=== PATIENT | female | born 2005 | race Caucasian/White ===

== ENCOUNTER 2024-11-28 10:13 | Emergency (ER) | payer OTHER ==
[2024-11-28] MEDS ORDERED: DexAMETHasone 0.5MG/5ML ORAL ELIX PO ONE (10:30)
[2024-11-28] MEDS ORDERED: KETOROLAC TROMETH 30 MG/ML 1ML VIAL IM ONE (10:30)
--- NOTE | 2024-11-28 11:10 | ED.PDOC ---
Eye-HPI HPI Comments 19y F who presents to the ED for chief complaint of sore throat. Pt states she had sore throat 2 weeks prior and went to urgent care and placed on antibiotics. Pt states despite finishing course of abx, she has noticed increased swelling and pain by her palatine tonsils for the past 2 days. Pt otherwise denies any other symptoms. 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 Family History Family History: Reviewed,noncontributory to illness, Unobtainable Social History Smoker: Non-Smoker Alcohol: Denies ETOH Use Drugs: Denies Drug Use Lives In: Home Constitutional: denies: chills, diaphoresis, fatigue, fever, malaise, sweats, weakness, others EENTM: reports: throat pain, throat swelling; denies: blurred vision, double vision, ear bleeding, ear discharge, ear drainage, ear pain, ear ringing, eye pain, eye redness, hearing loss, mouth pain, mouth swelling, nasal discharge, nose bleeding, nose congestion, nose pain, photophobia, tearing, voice changes, others Respiratory: denies: cough, hemoptysis, orthopnea, SOB at rest, shortness of breath, SOB with excertion, stridor, wheezing, others Cardiovascular: denies: chest pain, dizzy spells, diaphoresis, Dyspnea on exertion, edema, irregular heart beat, left arm pain, lightheadedness, palpitations, PND, syncope, others Gastrointestinal: denies: abdomen distended, abdominal pain, blood streaked bowels, constipated, diarrhea, dysphagia, difficulty swallowing, hematemesis, melena, nausea, poor appetite, poor fluid intake, rectal bleeding, rectal pain, vomiting, others Genitourinary: denies: abnormal vagina bleeding, burning, dyspareunia, dysuria, flank pain, frequency, hematuria, incontinence, pain, , vagina discharge, urgency, others Neurological: denies: dizziness, fainting, headache, left sided numbness, left sided weakness, numbness, paresthesia, pre-existing deficit, right sided numbness, right sided weakness, seizure, speech problems, tingling, tremors, weakness, others Musculoskeletal: denies: back pain, gout, joint pain, joint swelling, muscle pain, muscle stiffness, neck pain, others Integumetry: denies: bruises, change in color, change in hair/nails, dryness, laceration, lesions, lumps, rash, wounds, others Allergic/Immunocompromised: denies: Difficulty Healing, Frequent Infections, Hives, Itching, others Hematologic/Lymphatic: denies: anemia, blood clots, easy bleeding, easy bruising, swollen glands, others Endocrine: denies: excessive hunger, excessive sweating, excessive thirst, excessive urination, flushing, intolerance to cold, intolerance to heat, unexplained weight gain, unexplained weight loss, others Psychiatric: denies: anxiety, bipolar disorder, depression, hopeless, panic disorder, schizophrenia, sleepless, suicidal, others All Other Systems: Reviewed and Negative Physical Exam General Appearance: No Apparent Distress, Normal HEENT: Other (anterior cervical lymphadenopathy, b/l tonsilar erythema) Neck: Full Range of Motion, Non-Tender, Normal, Normal Inspection Respiratory: Chest Non-Tender, Lungs Clear, No Accessory Muscle Use, No Respiratory Distress, Normal Breath Sounds Cardiovascular: No Edema, No JVD, No Murmur, No Gallop, Normal Peripheral Pulses, Regular Rate/Rhythm Breast Exam: Deferred Gastrointestinal: No Organomegaly, Non Tender, No Pulsatile Mass, Normal Bowel Sounds, Soft Genitalia: Deferred Pelvic: Deferred Rectal: Deferred Extremities: No calf tenderness, Normal capillary refill, Normal inspection, Normal range of motion, Non-tender, No pedal edema Musculoskeletal : Apperance: Normal Neurologic: Alert, medical payment poster II-XII nml as Tested, No Motor Deficits, Normal Affect, Normal Mood, No Sensory Deficits Cerebellar Function: Normal Reflexes: Normal Skin: Dry, Normal Color, Warm Lymphatic: No Adenopathy Was a procedure done? Was a procedure done?: No EENT DIFF Eye: N/A Sore Throat: Herpangina, Live's Angina, Peritonsillar Abscess, Peritonsillar Cellulitis, Pharyngitis, Streptococcal, Viral Pharyngitis, URI X-Ray, Labs, Meds, VS Vital Signs Date Time Temp Pulse Resp B/P (MAP) Pulse Ox O2 Delivery O2 Flow Rate FiO2 11/28/24 11:21 101.8 Current Medications Medications (Trade) Dose Ordered Sig/Colton Route Start Time Stop Time Status Last Admin Penicillin G Benzathine (Bicillin L-A) 1,200,000 units ONCE ONCE IM 11/28/24 10:30 11/28/24 10:31 DC 11/28/24 11:21 Acetaminophen (Tylenol Solution Oral) 650 mg ONCE ONCE PO 11/28/24 10:30 11/28/24 10:31 DC 11/28/24 11:21 Ketorolac Tromethamine (Toradol Injection) 30 mg ONCE ONCE IV 11/28/24 11:15 11/28/24 11:16 DC 11/28/24 11:21 Dexamethasone Sodium Phosphate (Decadron Injection) 4 mg ONCE ONCE IV 11/28/24 12:45 11/28/24 12:46 DC 11/28/24 12:55 [place] [id number] Ph: [phone] DIAGNOSTIC IMAGING Diagnostic Imaging Report : [id number] Signed PATIENT: ELLEN PERAZA ACCT: [id number] UNIT: [id number] : 2005 LOC: ER ROOM / BED: / AGE / SEX: 19 / F ADM STATUS: REG ER SERVICE 1120 ORDERING PHYSICIAN: NAM SALGADO MD PROCEDURE(s): NKICT - NECK WITHOUT CONTRAST REASON: R/O ABSCESS ORDER NUMBER(s): [id number], ACCESSION NUMBER(s): [id number] HISTORY: R/O ABSCESS COMPARISON: None CT NECK WITHOUT CONTRAST INDICATION: R/O ABSCESS EXAM DATE: 11/28/2024 11:18 AM COMPARISON: None RADIATION DOSE: CTDIvol: 16.63 mGy, DLP: 461.1 mGy*cm PROCEDURE: Using the CT scanner, contiguous axial images were obtained from the great vessels to above the orbits. Coronal and sagittal reformatted images were then generated. All CT scans at this medical facility are performed using dose modulation techniques as appropriate to a performed exam including the following: Automated exposure control was utilized; adjustment of the MA and/or KV according to patient size; and use of iterative reconstruction technique. FINDINGS: There is enlarged palatine tonsil with mild adjacent fat stranding could be seen with tonsillitis. However no focal fluid collection is visualized to suggest for an abscess. The pharynx, larynx and trachea are normal. The parotid, submandibular and thyroid glands appear normal. No mass is seen. Mildly prominent cervical lymph nodes could be reactive. The visible paranasal sinuses, mastoid air cells and middle ear cavities are normally aerated. The skeletal structures, vasculature, and lung apices are normal. The visualized intracranial structures are normal. IMPRESSION: Enlarged palatine tonsil with mild adjacent fat stranding could be seen with tonsillitis. However no focal fluid collection is visualized to suggest for an abscess. ATED BY: JIMY DECKER MD DICTATED DATE/TIME: 11/28/241220 SIGNED BY: JIMY DECKER MD SIGNED DATE/TIME: 11/28/241220 CC: Time of 1ST Reevaluation: 11:40 Reevaluation 1ST: Unchanged Patient Education/Counseling: Diagnosis, Treatment, Prognosis, Need For Follow Up Family Education/Counseling: Diagnosis, Treatment, Prognosis, Need For Follow Up Additional Information pt does not have an abscess but did fail one round of amoxicillin. he received bicillin and decadron here. i will add clindamycin for continual home treatment. she has no airway complications Departure 1 Departure Time of Disposition: 12:57 Impression: Primary Impression: Tonsillitis Disposition: 01 HOME / SELF CARE / HOMELESS Condition: Good e-Prescriptions Clindamycin Hcl (Clindamycin Hcl) 300 Mg Cap 2 CAP PO TID for 7 Days, #21 CAP Prov: NAM SALGADO MD 11/28/24 Discharged With: Self, Relative (Mother) Critical Care Note Critical Care Time?: No Stability Stability form required: No Heart Score Heart Score: Heart Score Response (Comments) Value History N/A 0 EKG N/A 0 Age N/A 0 Risk Factors N/A 0 Troponin N/A 0 Total 0 I personally scribed for NAM SALGADO MD ([email or web address]) on 11/28/24 at 11:10. Electronically submitted by Fran Michelle ([email or web address]). I personally scribed for NAM SALGADO MD ([email or web address]) on 11/28/24 at 12:42. Electronically submitted by Fran Michelle ([email or web address]). NAM SALGADO MD November 28, 2024 11:10
[2024-11-28] MEDS: ACETAMINOPHEN 650 mg PER 20.3 mL UD PO ONE (11:21)
[2024-11-28] MEDS: PENICILLIN G BENZ 1,200,000 UNITS/2 ML SYRG IM ONE (11:21)
[2024-11-28] MEDS: KETOROLAC TROMETH 30 MG/ML 1ML VIAL IV ONE (11:21)
--- NOTE | 2024-11-28 12:24 | DVH ---
HISTORY: R/O ABSCESS COMPARISON: None CT NECK WITHOUT CONTRAST INDICATION: R/O ABSCESS EXAM DATE: 11/28/2024 11:18 AM COMPARISON: None RADIATION DOSE: CTDIvol: 16.63 mGy, DLP: 461.1 mGy*cm PROCEDURE: Using the CT scanner, contiguous axial images were obtained from the great vessels to abov e the orbits. Coronal and sagittal reformatted images were then generated. All CT scans at this medical facility are performed using dose modulation techniques as appropriate t o a performed exam including the following: Automated exposure control was utilized; adjustment of th e MA and/or KV according to patient size; and use of iterative reconstruction technique. FINDINGS: There is enlarged palatine tonsil with mild adjacent fat stranding could be seen with tonsi llitis. However no focal fluid collection is visualized to suggest for an abscess. The pharynx, laryn x and trachea are normal. The parotid, submandibular and thyroid glands appear normal. No mass is se en. Mildly prominent cervical lymph nodes could be reactive. The visible paranasal sinuses, mastoid a ir cells and middle ear cavities are normally aerated. The skeletal structures, vasculature, and lung apices are normal. The visualized intracranial structures are normal. IMPRESSION: Enlarged palatine tonsil with mild adjacent fat stranding could be seen with tonsillitis. However no focal fluid collection is visualized to suggest for an abscess.
[2024-11-28] MEDS: DexAMETHasone SOD PHOS 4 MG/1ML SDV INJ IV ONE (12:55)
[2024-11-28] MEDS ORDERED: CLIN1CAP70 PO (12:59)
[2024-11-28 13:00] VITALS: BP 114/73; PULSE 122; RESP 13; TEMP 99.3; O2SAT 98
== END 2024-11-28 13:18 | disposition home or self-care (01) ==
LOC: ER 10:13 → EEVIPCON 10:13 → ER 13:18
DX: J03.90 Acute tonsillitis, unspecified (principal)
CPT/HCPCS: 70490; 96372; 96374; 96375; 99285; J0561; J1885; J8540; J1100